=== PATIENT | male | born 1995 | race African-American/Black ===

== ENCOUNTER 2023-09-24 07:32 | Emergency (ER) | payer SELFPAY ==
--- NOTE | ~2023-09-24 | CT_ITS ---
EXAMINATION: CT abdomen pelvis w con INDICATION: Abdominal pain TECHNIQUE: Computed tomographic images of the abdomen and pelvis were obtained after the administrati on of 100 cc of Omnipaque 350 intravenous contrast. The dose-length product (DLP) was 258.06 mGy-cm. Automated exposure control and iterative reconstruction technique were employed. COMPARISON: None available FINDINGS: The lung bases are clear. The heart size is normal. The liver, spleen, pancreas, gallbladde r, and adrenal glands are normal. The kidneys are unremarkable. No pathologically enlarged abdominal or pelvic lymph nodes are identified. No free intraperitoneal gas or evidence of bowel obstruction. T he appendix is normal. The visualized osseous structures are unremarkable. IMPRESSION: 1. No CT correlate for the patient's symptoms. Reviewed, dictated and finalized at location B. [employer]
[2023-09-24 07:35] VITALS: BP 156/83; PULSE 87; RESP 16; TEMP 36.4; O2SAT 100
--- NOTE | 2023-09-24 08:03 | ED.GENADULT ---
HPI - General Adult General Chief complaint: GI Bleed Stated complaint: blood in stool Time Seen by Provider: 09/24/23 07:37 History of Present Illness HPI narrative: 27-year-old male presenting to the emergency department for evaluation of abdominal cramping and blood in his stool. Patient states he has had some issues with constipation and does have to bear down for a bowel movement. Patient states he does have a history of using narcotics but has not been using narcotics for approximate the last 3 weeks. Patient states he has been passing blood with bowel movements. Related Data Allergies Allergy/AdvReac Type Severity Reaction Status Date / Time No Known Allergies Allergy Verified 09/24/23 08:16 Review of Systems Review of Systems: All systems reviewed & are unremarkable except as noted in HPI and below Exam Narrative: APPEARANCE: Well appearing, no pain, no distress, well-nourished. HEAD: normocephalic, atraumatic. EYES: PERRLA/EOMI, conjunctivae clear. NOSE: Normal no drainage EARS:TMS clear with good light reflex. THROAT: Pharynx clear, no exudate. NECK: Supple. No adenopathy, no masses. RESPIRATORY: Airway patent, respirations nonlabored. Clear to auscultation bilaterally, no rales, rhonchi, wheezing. CARDIOVASCULAR: Regular rate and rhythm without murmurs rubs or gallops. ABDOMINAL: Soft, nontender, nondistended, normal bowel sounds rectal exam: Hemorrhoids MUSCULOSKELETAL: Moves all extremities. Strength/ROM intact, No edema, No calf tenderness. NEURO: Alert. Cranial nerves II through XII intact. grossly intact SKIN: Warm, dry. Normal Color Course Course Emergency Course: 27-year-old male presenting emergency department for evaluation of blood in his stool. Patient does have multiple external hemorrhoids. Patient had a normal CT scan with no acute intra-abdominal abnormality. Patient was encouraged to take preparation H to help with his hemorrhoids and patient was also encouraged to take MiraLax to help soften his stool. Patient was encouraged to have close follow-up with his primary care physician. All questions and concerns were addressed. Vital Signs Vital signs: Vital Signs Temperature 97.5 F L 09/24/23 07:35 Pulse Rate 87 09/24/23 07:35 Respiratory Rate 16 09/24/23 07:35 Blood Pressure 156/83 H 09/24/23 07:35 Pulse Oximetry 100 12/15/23 07:35 Oxygen Delivery Room Air 09/24/23 07:35 Temperature 97.5 F L 09/24/23 07:35 Pulse Rate 70 09/24/23 09:29 Respiratory Rate 16 09/24/23 09:29 Blood Pressure 135/80 09/24/23 09:29 Pulse Oximetry 100 09/24/23 09:29 Oxygen Delivery Room Air 09/24/23 07:35 Medical Decision Making Differential Diagnosis Differential Diagnosis: colitis, diverticulitis, hemorrhoids Vital Signs Vital Signs: Vital Signs Temperature 97.5 F L 09/24/23 07:35 Pulse Rate 87 09/24/23 07:35 Respiratory Rate 16 09/24/23 07:35 Blood Pressure 156/83 H 09/24/23 07:35 Pulse Oximetry 100 09/24/23 07:35 Oxygen Delivery Room Air 09/24/23 07:35 Temperature 97.5 F L 09/24/23 07:35 Pulse Rate 70 09/24/23 09:29 Respiratory Rate 16 09/24/23 09:29 Blood Pressure 135/80 09/24/23 09:29 Pulse Oximetry 100 09/24/23 09:29 Oxygen Delivery Room Air 09/24/23 07:35 Lab Data Lab results reviewed: Yes I reviewed the patient's lab results. 09/24/23 08:13 09/24/23 08:13 Labs: Lab Results 09/24/23 Range/Units 08:13 WBC 3.8 L (4.5-10.0) K/mm3 RBC 4.95 (4.6-6.20) M/mm3 Hgb 14.7 (14.0-18.0) g/dL Hct 43.7 (42.0-52.0) % MCV 88.3 (80-100) fl MCH 29.7 (26-34) pg MCHC 33.6 (32-36) g/dl RDW 11.9 (11.5-14.5) % Plt Count 212 (150-375) k/mm3 MPV 10.4 (7.4-10.4) fl Immature Gran % (Auto) 0.3 (0-0.5) % Neut % (Auto) 48.3 (45.5-73.1) % Lymph % (Auto) 29.6 (18.3-44.2) % [place] % (Auto) 17.5 H (2.6-8.5) % Eos % (Auto) 2.4 (0-4.4) % Baso
[2023-09-24 08:17] LABS: Basophils Absolute Auto 0.1 K/mm3 (0.0-0.1); Basophils Percent Auto 1.9 % (0.2-1.2); Eosinophils Absolute Auto 0.1 K/mm3 (0-0.3); Eosinophils Percent Auto 2.4 % (0-4.4); Hematocrit 43.7 % (42.0-52.0); Hemoglobin 14.7 g/dL (14.0-18.0); Immature Granulocyte Absolute 0.01 K/mm3 (0.00-0.031); Immature Granulocyte Percent A 0.3 % (0-0.5); Lymphocytes Absolute Auto 1.12 K/mm3 (0.9-3.2); Lymphocytes Percent Auto 29.6 % (18.3-44.2); Mean Corpuscular HGB Conc 33.6 g/dl (32-36); Mean Corpuscular Hemoglobin 29.7 pg (26-34); Mean Corpuscular Volume 88.3 fl (80-100); Mean Platelet Volume 10.4 fl (7.4-10.4); Monocytes Absolute Auto 0.7 K/mm3 (0.1-0.6); Monocytes Percent Auto 17.5 % (2.6-8.5); Neutrophils Absolute Auto 1.8 K/mm3 (1.3-6.7); Neutrophils Percent Auto 48.3 % (45.5-73.1); Platelet Count Result 212 k/mm3 (150-375); Red Blood Count 4.95 M/mm3 (4.6-6.20); Red Cell Distribution Width 11.9 % (11.5-14.5); White Blood Count 3.8 K/mm3 (4.5-10.0)
[2023-09-24] MEDS: SODIUM CHLORIDE 0.9% IV 1,000 ML 999 ML IV CONT (08:17)
[2023-09-24 08:35] LABS: Alanine Aminotransferase 17 U/L (6-50); Albumin Level 4.7 g/dL (3.5-5.1); Alkaline Phosphatase 60 U/L (38-126); Anion Gap 5 mmol/L (8-16); Aspartate Amino Transferase 32 U/L (17-59); Bilirubin,Total 0.8 mg/dL (0.2-1.3); Blood Urea Nitrogen 13 mg/dL (9-20); Calcium 9.3 mg/dL (8.4-10.2); Carbon Dioxide 27 mmol/L (22-30); Chloride 105 mmol/L (98-107); Estimated CRCL calculation 101 ml/min; Estimated Glomerular Filt Rate > 60; Glucose 108 mg/dL (65-110); Potassium 3.8 mmol/L (3.4-5.0); Sodium 137 mmol/L (137-145)
[2023-09-24 08:41] LABS: Prothrombin Time 13.5 Seconds (11.1-14.7)
[2023-09-24 09:29] VITALS: BP 135/80; PULSE 70; RESP 16; O2SAT 100
== END 2023-09-24 09:31 | disposition home or self-care (01) ==
PROVIDERS: Emergency Provider Emergency Medicine
DX: K64.9 Unspecified hemorrhoids (principal)
CPT/HCPCS: 36415; 74177; 80053; 85025; 85610; 85730; 96360; 99284; J7030; Q9967